=== PATIENT | female | born 1985 | race Caucasian/White ===

== ENCOUNTER 2022-10-28 17:23 | Emergency (ER) | payer OTHER, SELFPAY ==
[2022-10-28 17:43] VITALS: BP 140/91; PULSE 93; RESP 17; TEMP 36.7; O2SAT 98
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
== END 2022-10-28 19:31 | disposition home or self-care (01) ==
LOC: ANHED 19:24
PROVIDERS: Emergency Provider Emergency Medicine
DX: S16.1XXA Strain of muscle, fascia and tendon at neck level, initial encounter (principal); V43.52XA Car driver injured in collision with other type car in traffic accident, initial encounter
CPT/HCPCS: 99283